=== PATIENT | male | born 1965 | race African-American/Black ===

== ENCOUNTER 2017-06-12 17:24 | Outpatient (CLI) | payer BC ==
[2017-06-12 21:50] LABS: Bilirubin Negative (Negative); Blood, Urine Negative (Negative); Clarity CLEAR (Clear); Glucose, Urine (Dipstick) Negative (Negative); Leukocyte Negative (Negative); Nitrite Negative (Negative); Protein, Urine (Dipstick) Negative (Neg-Trace); Specific Gravity, Urine 1.009 (1.002-1.036); pH, Urine 7.5 (5.0-9.0)
[2017-06-12 21:57] LABS: Bacteria/HPF None Seen HPF (None Seen); Hyaline Casts/LPF 0-3 HYALINE CAST LPF (0-3 Hyaline); RBC/HPF 0-3 HPF (0-3); Squamous Epithelial None Seen HPF (0-3); WBC/HPF 0-3 HPF (0-3)
--- NOTE | 2017-06-12 22:14 | RAD ---
CHEST TWO VIEWS 06/12/17 The heart size is stable. There is no vascular congestion, edema, or pleural effusion. The lungs are hyperexpanded as usual. No lobar consolidations were seen. While there is haziness over the right hem idiaphragm, it does not seem much different than before, nor do I see a decided infiltrate in the low er lobes on the lateral view. The upper lobes are clear. The trachea is midline. IMPRESSION: Chronic changes but no definite acute findings. Significant disease could easily be missed in this pa tient's chest. If symptoms were to continue and be worrisome, then a CT of the chest would be needed for complete evaluation. POS: HOME
== END 2017-06-12 17:25 | disposition home or self-care (01) ==
LOC: BURRAD 17:24
PROVIDERS: ATTEND Family Medicine
DX: D72.825 Bandemia (principal); D72.829 Elevated white blood cell count, unspecified
CPT/HCPCS: 71046; 81001; 87086

== ENCOUNTER 2019-07-21 18:18 | Emergency (ER) | payer BC ==
[2019-07-21 19:11] LABS: ALT (SGPT) 31 U/L (8-55); AST (SGOT) 31 U/L (5-34); Albumin 4.6 g/dL (3.5-5.0); Alkaline Phosphatase 124 U/L (40-110); Anion Gap 21 mmol/L (10-20); BUN (Urea Nitrogen) 27 mg/dL (8.4-25.7); Bilirubin, Total 1.4 mg/dL (0.2-1.2); Calc. Creatinine Clearance 0 mL/min (70-130); Calcium 9.9 mg/dL (7.8-10.44); Carbon Dioxide 22 mmol/L (22-29); Chloride 92 mmol/L (98-107); Estimated GFR-MDRD 45; Globulin 3.6 g/dL (2.4-3.5); Lipase 46 U/L (8-78); Potassium 4.6 mmol/L (3.5-5.1); Protein, Total 8.2 g/dL (6.0-8.3); Sodium 130 mmol/L (136-145)
[2019-07-21 19:14] LABS: Hemoglobin 12.9 g/dL (14.0-18.0); Mean Corpuscular HGB CONC 34.4 g/dL (32.0-36.0); Mean Corpuscular Hemoglobin 26.3 pg (27.0-31.0); Mean Corpuscular Volume 76.5 fL (78.0-98.0); Mean Platelet Volume 7.7 fL (7.4-10.4); Platelet Count 423 thou/uL (130-400); Red Blood Cell (RBC) Count 4.89 mill/uL (4.70-6.10); White Blood Cell (WBC) Count 23.2 thou/uL (4.8-10.8)
[2019-07-21 19:21] LABS: Band 14 % (5-11); Hypochromia MODERATE=16-30 cells (100X) (0-5/hpf); Large Platelets SLIGHT; Lymphocytes 27 % (21-51); MDiff Complete? YES; Macrocytosis MODERATE=16-30 cells (100X) (0-5/hpf); Microcytosis SLIGHT = 6-15 cells (100X) (0-5/hpf); Monocytes 9 % (0-10); Neutrophil 46 % (42-75); Nucleated RBC 4 % (0); Polychromasia SLIGHT = 2-3 cells (100X) (0-2/hpf); Reactive Lymphocytes 3 % (0-10); Stomatocytes SLIGHT = 2-5 cells (100X) (0-1/hpf); Target Cells MODERATE= 6-15 cells (100X) (0-1/hpf)
[2019-07-21 19:23] LABS: Glucose 789 mg/dL (70-105)
[2019-07-21 19:29] LABS: Bilirubin Negative (Negative); Blood, Urine Negative (Negative); Clarity Clear (Clear); Glucose, Urine (Dipstick) 500 mg/dL (Negative); Leukocyte Negative (Negative); Nitrite Negative (Negative); Protein, Urine (Dipstick) Negative (Neg-Trace); Urobilinogen 0.2 mg/dL (Less than 2)
[2019-07-21] MEDS ORDERED: Sodium Chloride 0.9% 100 ML ONE (19:42)
[2019-07-21] MEDS ORDERED: Cefepime 1 GM VIAL ONE (19:42)
--- NOTE | 2019-07-21 20:47 | RAD ---
CHEST TWO VIEWS: 07/21/19 Comparison is made with the prior study of 06/12/17 as well as several prior Ct scans dating back to 27 03. The heart is normal in size. There is no vascular congestion, edema, or pleural effusion. As on prior studies, the anterior part of the right hemidiaphragm is raised, looking no different than before. P reviously, there were linear infiltrates in the right lower lobe. I cannot see any today. The lungs appear to be clear. This slight lingular haziness is probably due to a prominent fat pad. IMPRESSION: Some chronic changes as noted, but no definite acute findings. POS: HOME
== END 2019-07-21 20:18 | disposition short-term general hospital (02) ==
LOC: BURERS 18:18
DX: E86.0 Dehydration (principal); E11.65 Type 2 diabetes mellitus with hyperglycemia; D72.829 Elevated white blood cell count, unspecified; I10 Essential (primary) hypertension; F17.210 Nicotine dependence, cigarettes, uncomplicated; Z79.899 Other long term (current) drug therapy
CPT/HCPCS: 36416; 71046; 80053; 81003; 82010; 82550; 83605; 83690; 84484; 85025; 87040; 93005; 96361; 96374; J0692; J3370; J3490

== ENCOUNTER 2020-06-23 10:20 | Outpatient (CLI) | payer BC ==
[2020-06-23 13:07] LABS: ALT (SGPT) 34 U/L (8-55); AST (SGOT) 30 U/L (5-34); Albumin 4.2 g/dL (3.5-5.0); Alkaline Phosphatase 76 U/L (40-110); Anion Gap 13 mmol/L (10-20); BUN (Urea Nitrogen) 18 mg/dL (8.4-25.7); Bilirubin, Total 0.9 mg/dL (0.2-1.2); Calc. Creatinine Clearance 0 mL/min (70-130); Calcium 9.7 mg/dL (7.8-10.44); Carbon Dioxide 29 mmol/L (22-29); Cardiac Risk 3.8 (Less than 4.5); Chloride 107 mmol/L (98-107); Cholesterol 132 mg/dl (< 200 Desired); Globulin 2.7 g/dL (2.4-3.5); Glucose 129 mg/dL (70-105); HDL Cholesterol 35 mg/dL (>60 Neg Risk); LDL Cholesterol, Calculated 74 mg/dL; Potassium 4.7 mmol/L (3.5-5.1); Protein, Total 6.9 g/dL (6.0-8.3); Sodium 144 mmol/L (136-145); Triglycerides 116 mg/dL (Less than 150)
[2020-06-23 14:18] LABS: Band 1 % (5-11); Eosinophils 4 % (0-10); Hemoglobin 13.3 g/dL (14.0-18.0); Lymphocytes 24 % (21-51); MDiff Complete? YES; Mean Corpuscular HGB CONC 32.5 g/dL (32.0-36.0); Mean Corpuscular Volume 76.9 fL (78.0-98.0); Mean Platelet Volume 6.9 fL (7.4-10.4); Monocytes 4 % (0-10); Neutrophil 66 % (42-75); Platelet Count 405 thou/uL (130-400); RBC Distribution Width 17.6 % (11.5-14.5); Red Blood Cell (RBC) Count 5.32 mill/uL (4.70-6.10)
[2020-06-23 14:45] LABS: White Blood Cell (WBC) Count 13.6 thou/uL (4.8-10.8)
== END 2020-06-23 10:21 | disposition home or self-care (01) ==
LOC: HPCALD 10:20
PROVIDERS: ATTEND Registered Nurse Community Health
DX: E78.5 Hyperlipidemia, unspecified (principal); I10 Essential (primary) hypertension; E11.9 Type 2 diabetes mellitus without complications
CPT/HCPCS: 36415; 80053; 80061; 84443; 85025